=== PATIENT | female | born 1985 | race African-American/Black ===

== ENCOUNTER → 2022-06-16 14:14 | Outpatient (CLI) | payer OTHER, SELFPAY ==
--- NOTE | ~2022-06-16 | XR_ITS ---
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 RESULT: Lines, tubes, and devices: None. Lungs and pleura: Clear. Cardiomediastinal silhouette: Stable. Other: No acute osseous or upper abdominal finding. IMPRESSION: No acute cardiopulmonary process. Reviewed, dictated and finalized at location K. DEODORIZER SERVICER
== END ==
PROVIDERS: PCP Family Medicine Adolescent Medicine; Visit Provider Physician Assistant
DX: R06.02 Shortness of breath (principal)
CPT/HCPCS: 71046

== ENCOUNTER 2023-10-05 15:20 | Outpatient (CLI) | payer OTHER, SELFPAY ==
[2023-10-05 18:48] LABS: Basophils Percent Auto 0.4 % (0.2-1.2); Eosinophils Absolute Auto 0.2 K/mm3 (0-0.3); Eosinophils Percent Auto 2.2 % (0-4.4); Hematocrit 37.7 % (37.0-47.0); Hemoglobin 12.1 g/dL (12.0-15.0); Immature Granulocyte Absolute 0.04 K/mm3 (0.00-0.031); Immature Granulocyte Percent A 0.6 % (0-0.5); Lymphocytes Absolute Auto 1.31 K/mm3 (0.9-3.2); Lymphocytes Percent Auto 19.1 % (18.3-44.2); Mean Corpuscular HGB Conc 32.1 g/dl (32-36); Mean Corpuscular Hemoglobin 27.4 pg (26-34); Mean Corpuscular Volume 85.5 fl (80-100); Mean Platelet Volume 9.4 fl (7.4-10.4); Monocytes Absolute Auto 0.5 K/mm3 (0.1-0.6); Monocytes Percent Auto 7.7 % (2.6-8.5); Neutrophils Absolute Auto 4.8 K/mm3 (1.3-6.7); Platelet Count Result 324 k/mm3 (150-375); Red Blood Count 4.41 M/mm3 (4.2-5.4); Red Cell Distribution Width 15.3 % (11.5-14.5); White Blood Count 6.9 K/mm3 (4.5-10.0)
[2023-10-05 18:57] LABS: Alanine Aminotransferase 17 U/L (6-35); Albumin Level 4.3 g/dL (3.5-5.1); Alkaline Phosphatase 69 U/L (38-126); Anion Gap 10 mmol/L (4-12); Aspartate Amino Transferase 31 U/L (14-36); Bilirubin,Total 0.6 mg/dL (0.2-1.3); Blood Urea Nitrogen 10 mg/dL (7-17); Calcium 9.3 mg/dL (8.4-10.2); Carbon Dioxide 23 mmol/L (22-30); Chloride 107 mmol/L (98-107); Cholesterol 152 mg/dL (0-200); Estimated Glomerular Filt Rate > 60; Glucose 144 mg/dL (65-110); HDL Direct 26 mg/dL; Sodium 140 mmol/L (137-145); Triglycerides 140 mg/dL (<150)
[2023-10-05 19:07] LABS: LDL Cholesterol Direct 89 mg/dL
[2023-10-05 20:25] LABS: Hemoglobin A1C 5.5 % (<5.7)
== END 2023-10-05 15:21 | disposition home or self-care (01) ==
LOC: ANHGOSHLAB 15:21
PROVIDERS: PCP Family Medicine Adolescent Medicine; Visit Provider Nurse Practitioner Family
DX: E28.2 Polycystic ovarian syndrome (principal); E66.01 Morbid (severe) obesity due to excess calories; D84.1 Defects in the complement system; R53.83 Other fatigue; Z13.220 Encounter for screening for lipoid disorders
CPT/HCPCS: 36415; 80053; 80061; 82607; 83036; 84443; 85025

== ENCOUNTER 2023-11-04 15:14 | Outpatient (CLI) | payer OTHER, SELFPAY ==
--- NOTE | ~2023-11-04 | MR_ITS ---
EXAMINATION: MR brain/brain stem wo/w con DATE: 11/04/2023 15:49 INDICATION: Dizziness and giddiness. TECHNIQUE: Magnetic resonance imaging (MRI) of the brain and brainstem was performed without and with 20 mL MultiHance intravenous contrast. COMPARISON: None. FINDINGS: There is an empty sella. There is no intracranial hemorrhage, acute infarction, or abnormal intracranial mass lesion. The ventricles are normal in size. The mastoid air cells are normal. The o rbits are normal. The paranasal sinuses are clear. IMPRESSION: 1. No etiology for the patient's symptoms. Reviewed, dictated and finalized at location A.
== END 2023-11-04 15:15 ==
LOC: MICIMG 15:15
PROVIDERS: PCP Family Medicine Adolescent Medicine; Visit Provider Nurse Practitioner Family
DX: R42 Dizziness and giddiness (principal)
CPT/HCPCS: 70553; A9577

== ENCOUNTER 2023-12-11 14:48 | Outpatient (CLI) | payer OTHER, SELFPAY ==
--- NOTE | ~2023-12-11 | US_ITS ---
EXAMINATION: US pelvic complete w TV DATE: 12/11/2023 15:12 INDICATION: Pelvic and perineal pain. TECHNIQUE: Multiple transabdominal and transvaginal sonographic images of the pelvis were obtained. COMPARISON: None. FINDINGS: TRANSABDOMINAL ULTRASOUND: The uterus measures 8.1 x 4.7 x 5.7 cm. There is no free fluid in the pelvis. TRANSVAGINAL ULTRASOUND: The endometrial complex measures 6 mm in thickness. There is a 2.5 cm subserosal fibroid. The right o vary measures 2.8 x 2.7 x 2.3 cm. The left ovary measures 2.3 x 3.0 x 2.6 cm. There is normal vascula r flow in the ovaries. IMPRESSION: 1. Uterine fibroid. Reviewed, dictated and finalized at location A. IMPRESSION: 1. Uterine fibroid.
== END 2023-12-11 14:49 ==
LOC: MICIMG 14:49
PROVIDERS: PCP Obstetrics & Gynecology; Visit Provider Nurse Practitioner Family
DX: R10.2 Pelvic and perineal pain (principal); D25.9 Leiomyoma of uterus, unspecified
CPT/HCPCS: 76830; 76856

== ENCOUNTER 2024-02-12 08:29 | Outpatient (CLI) | payer OTHER, SELFPAY ==
--- NOTE | ~2024-02-12 | US_ITS ---
Limited Abdominal Sonogram: Real-time sonographic imaging of the right upper quadrant was performed. Clinical History: Nausea Findings: The liver appears mildly echogenic, with no evidence of mass lesion or bile duct dilatatio n. Main portal vein demonstrates normal direction of flow. The gallbladder is contracted, but appears normal with no evidence of gallstone or wall thickening. The common bile duct measures 3 mm. The vi sualized pancreas, aorta, and IVC are unremarkable. Impression: Probable diffuse fatty infiltration of the liver. Reviewed, dictated and finalized at location M. Impression: Probable diffuse fatty infiltration of the liver.
== END 2024-02-12 08:30 | disposition home or self-care (01) ==
PROVIDERS: PCP Nurse Practitioner Family; Visit Provider Nurse Practitioner Family
DX: R11.0 Nausea (principal); R10.11 Right upper quadrant pain
CPT/HCPCS: 76705

== ENCOUNTER 2024-02-26 07:50 | Outpatient (CLI) | payer OTHER, SELFPAY ==
--- NOTE | ~2024-02-26 | NM_ITS ---
EXAMINATION: NM hepatobiliary w pharm DATE: 02/26/2024 11:10 INDICATION: Right upper quadrant abdominal pain COMPARISON: None. TECHNIQUE: 4.8 mCi Tc-99m mebrofenin (Choletec) was administered intravenously. Scintigraphic images of the abdomen were obtained for one hour. 2.7 mcg sincalide (Kinevac) was administered by slow intr avenous infusion, and imaging was continued for 30 minutes. Gallbladder ejection fraction was calcula desean by the technologist. FINDINGS: There is normal clearance of radiotracer from the blood pool. There is homogeneous tracer uptake by t he liver. Activity progresses to the gallbladder and bowel. The gallbladder ejection fraction (GBEF) is 71% (normal 10-90%, but most patient with gallbladder dysfunction have GBEF < 35% which does over lap with the normal range). IMPRESSION: 1. Normal hepatobiliary scan. Reviewed, dictated and finalized at location B.
== END 2024-02-26 07:51 | disposition home or self-care (01) ==
PROVIDERS: PCP Nurse Practitioner Family; Visit Provider Nurse Practitioner Family
DX: R10.11 Right upper quadrant pain (principal)
CPT/HCPCS: 78227; A9537; J2805

== ENCOUNTER 2024-05-20 10:56 | Outpatient (CLI) | payer OTHER, SELFPAY ==
--- NOTE | ~2024-05-20 | XR_ITS ---
Lumbosacral Spine: AP and lateral views Clinical History: Pain Findings: The normal lordotic curve is maintained. The vertebral bodies and posterior elements are i ntact. The intervertebral disc spaces are preserved. The sacroiliac joints are normally outlined. Impression: No significant abnormality. Reviewed, dictated and finalized at [facility]. [facility] Impression: No significant abnormality.
== END 2024-05-20 10:57 | disposition home or self-care (01) ==
PROVIDERS: PCP Nurse Practitioner Family; Visit Provider Nurse Practitioner Family
DX: M54.50 Low back pain, unspecified (principal)
CPT/HCPCS: 72100

== ENCOUNTER 2024-10-06 01:21 | Day surgery (SDC) | payer OTHER, SELFPAY ==
[2024-09-26 13:34] VITALS: BMI 49.1
--- NOTE | 2024-10-05 14:27 | WPDANESEPPF ---
Anes - Initial Pre Proc Eval Procedure: Operation Date: 10/06/24 10:00 Proposed Procedures p Screening Colonoscopy - Reinaldo Castellanos MD Date/Time: 10/05/24 14:27 Surgeon: Reinaldo Castellanos MD Pre Op Diagnosis: change in bowel habits Patient Data Age: 39 Gender: F Height: 1.65 m Weight: 134 kg Allergies Allergy/AdvReac Type Severity Reaction Status Date / Time montelukast Allergy Mild DEPRESSION Verified 10/06/24 08:38 morphine Allergy Unknown ITCHING Verified 10/06/24 08:38 sertraline AdvReac Severe Other Verified 10/06/24 08:38 NSAIDS (Non-Steroidal AdvReac Unknown Difficulty Verified 10/06/24 08:38 Anti-Inflamma Swallowing lisinopril Allergy Severe throat Uncoded 10/06/24 08:38 swelling Home Medications ?Medication ?Instructions ?Recorded ?Confirmed ?Type cetirizine 10 mg tablet 10 mg PO DAILY 06/16/22 10/06/24 History folic acid 400 mcg tablet 0.4 mg PO DAILY 06/16/22 10/06/24 History magnesium oxide 500 mg capsule 500 mg PO DAILY 06/16/22 10/06/24 History jlwkwegvfuna-Cs-ftjn-minerals 18 tablet PO DAILY 06/16/22 07/14/24 History mg-0.4 mg tablet albuterol sulfate 90 mcg/actuation 1 puff inhalation Q4H PRN 09/30/23 09/26/24 Rx aerosol inhaler shortness of breath or wheezing #6.7 grams amitriptyline 25 mg tablet 50 mg (2 x 25 mg) PO QHS #180 tabs 11/03/23 10/06/24 Rx sulfasalazine 500 mg 1.5 g (3 x 500 mg) PO BID #540 tabs 01/19/24 10/06/24 Rx tablet,delayed release dicyclomine 10 mg capsule 10 mg PO ONCE PRN unknown 02/03/24 09/26/24 History metoprolol succinate 100 mg 100 mg PO DAILY #90 tabs 02/12/24 10/06/24 Rx tablet,extended release 24 hr amlodipine 5 mg tablet 5 mg PO DAILY #90 tabs 04/27/24 10/06/24 Rx cyanocobalamin (vitamin B-12) 1,000 mcg PO DAILY 07/14/24 10/06/24 History 1,000 mcg capsule norethindrone acetate 5 mg tablet See Rx Instructions .Route 08/01/24 10/06/24 Rx .COMPLEX #90 tabs metformin 500 mg tablet 500 mg PO DAILY 08/08/24 09/26/24 History citalopram 40 mg tablet 40 mg PO DAILY #90 tabs 09/29/24 10/06/24 Rx Patient hx anesthesia problems: none Family hx anesthesia problems: none Results Review: All pre-operative results and documents have been reviewed as part of the pre-operative evaluation. [facility] Past Medical History Medical History Chest pain Asthma Endometriosis Obstructive sleep apnea (adult) (pediatric) (10/2022) secondary to nasal obstruction, resolved with treatment with ENT PCOS (polycystic ovarian syndrome) Family History Family History Grandparent Diabetes mellitus Acute myocardial infarction Hypertension Father Cerebrovascular accident Hypertension Mother Hypertension Other Heart disease Malignant neoplasm of prostate Social History Social History Smoking status: Never smoker Alcohol intake: never Substance use: never Substance use type: does not use Lack of Transportation: No Lack of Food: Never True Current Housing: I Have Housing Concerned About Future Housing: No Difficulty Paying Gas/Electric Bills: No Difficulty Paying for Meds: No Currently Unemployed: No Education: Master's Degree or Higher Difficulty w/ Childcare or Family Care: No Living arrangements: alone Occupation/Education: occupation 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 Gender identity (if verbalized by the patient): Female Sexual Orientation (if Verbalized by the Patient): Straight or Heterosexual Spiritual care concerns: No Anes - Eval Final PreProcedure Day of Procedure 10/05/24 14:27 Patient weight: morbidly obese Heart: regular rate and rhythm Lungs: clear to auscultation Airway: Mallampati scale class II Neurological: alert and oriented Last oral intake: >/= 8 hours ASA classification: III Emergent: no Anesthetic plan: proceed Anesthesia type and monitoring: general GIVS and standard monitoring Results Review: All pre-operative results and documents have been reviewed as part of the pre-operative evaluation. Informed Consent: The patient's anesthetic plan and its attendant risks and benefits were discussed with the patient/family/POA. Questions were solicited and answers provided to the satisfaction of the patient/family/POA.
--- OUTSIDE RECORDS SUMMARY | 2024-10-06 01:23 | XMS_ITS | Clinical Summary ---
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 Gender Identity Not on file Sexual Orientation Not on file Plan of Treatment Health Maintenance Due Date Last Done Comments Hepatitis C Virus (HCV) Screening 1986 TdaP Immunization 1986 Hepatitis B Immunization (3 of 3 - 3-dose series) 12/21/1996 10/05/1996, 08/31/1996 Pap Smear 08/12/2007 Cervical Cancer Screening (CCS) 2016 HPV/Cotest 2016 Influenza Immunization (#1) 2024 03/19/2019, 0 06/24/2017 SARS-COV-2 Immunization ( season) 2024 Respiratory Syncytial Virus (RSV) Immunization (Adult) (1 - 1-dose 75+ series) 2061 DTaP/Tdap/Td Immunization Discontinued 1992, 01/27/1992, 12/25/1989, Additional history exists Meningococcal Immunization (ACWY) Aged Out 01/20/2005 No longer eligible based on patient's age to complete this topic Pneumococcal Immunization Combined Aged Out No longer eligible based on patient's age to complete this topic Rotavirus Immunization Aged Out No lo nger eligible based on patient's age to complete this topic
--- OUTSIDE RECORDS SUMMARY | 2024-10-06 01:23 | XMS_ITS | Clinical Summary ---
Author Organization [facility] Address [facility] [place] [address] Care Team Providers Care Cash Applications Manager Name Role Phone Unavailable Primary Care Provider Unavailabl e Social History Tobacco Use Types Packs/Day Years Used Date Smoking Tobacco: Never Assessed Comments Unknown Sex and Gender Information Value Date Recorded Sex Assigned at Not on file Legal Sex Female 6:07 PM CDT Gender Identity Not on file Sexual Orientation Not on file Plan of Treatment Health Maintenance Due Date Last Done Comments Cervical Cancer Screening Pa p Smear (Age 30 to 64) Every 3 Years 1986 Annual Physical 1989 Hepatitis C 2004 DTaP, Tdap and Td Vaccines ( 1 - Tdap) 2005 Hepatitis B Vaccines (1 of 3 - 19+ 3-dose series) 2005 Cervical Cancer Screening Pa p with HPV Testing (Age 30 to 64) Every 5 Years 2016 Cervical Cancer Screening with HPV 2016 COVID-19 Vaccine (2023-2 5 season) 2024 HPV Vaccines Aged Out No longer eligi ble based on patient's age to complete this topic Meningococcal B Vaccine Aged Out No l onger eligible based on patient's age to complete this topic Meningococcal Vaccine Aged Out No evangelista eugenio eligible based on patient's age to complete this topic Pneumococcal Vaccine: Pediat rics (0 to 5 Years) and At-Risk Patients (6 to 49 Years) Aged Out No longer eligible b ased on patient's age to complete this topic RSV Immunizations Under 20 Months Aged Out No longer eligible based on patient's age to complete this topic
--- OUTSIDE RECORDS SUMMARY | 2024-10-06 01:23 | XMS_ITS | Clinical Summary ---
Author Organization [facility] Address [address] [place] [address] Care Team Providers Care Microchip Specialist Name Role Phone Arsenio Zhu MD Primary Care Prov ider Jazlyn North NP Unavailable [phone] Allergies Active Allergy Reactions Criticality Noted Date Comments Esterified Estrogens Swelling Medium 09/15/2022 Montelukast Unknown 04/26/2021 Morphine Itching High 04/26/2021 Nuts Unknown 04/26/2021 Sertraline Mental status changes Low 09/15/2022 Suicidal thoughts Sesame Oil Unknown High 04/26/2021 Medications amitriptyline (ELAVIL) 25 mg tablet 3 Active norethindrone (AYGESTIN) 5 mg tablet 3 Active metFORMIN (GLUCOPHAGE) 500 mg tablet TAKE 1 TABLET BY MOUTH DAILY WITH MEALS 2 Active citalopram (CeleXA) 40 mg tablet Take 1 tablet (40 mg total) by mouth daily 3 Active cetirizine (ZyrTEC) 10 mg tablet Take 1 tablet (10 mg total) by mouth 6 Active dicyclomine (BENTYL) 10 mg capsule Use in the mouth or throat. 7 Active EPINEPHrine 0.3 mg/0.3 mL auto-injection syringe Inject 0.3 mL (0.3 mg total) into the muscle as instructed as needed 1 Active famotidine (PEPCID) 40 mg tablet Take 1 tablet (40 mg total) by mouth 2 (two) times a day 0 Active folic acid (FOLVITE) 1 mg tablet Take 1 tablet (1 mg total) by mouth 9 Active predniSONE (DELTASONE) 20 mg tablet 3 Active albuterol HFA (PROVENTIL HFA,VENTOLIN HFA,PROAIR HFA) 90 mcg/actuation inhaler 4 Active sulfaSALAzine EN (AZULFIDINE EN) 500 mg EC tablet 4 Active metoprolol XL (TOPROL-XL) 100 mg 24 hr tablet 4 Active Active Problems Problem Noted Date Diagnosed Date Gastroesophageal reflux disease 03/01/2024 Low back pain 03/01/2024 Obstructive sleep apnea 03/01/2024 Primary hypertension 03/01/2024 Morbid (severe) obesity due to excess calories 0 03/01/2024 BMI 45.0-49.9, adult 01/07/2024 Endometriosis determined by laparoscopy 09/23/19 23 10/26/2022 Allergic rhinitis 04/26/2021 10/26/2022 Anemia 04/26/2021 10/26/2022 Chest wall pain 04/26/2021 10/26/2022 Depressive disorder, 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 Structural causes includes history of endometrial polyp s/p hysteroscopic resection as well as fibroids. Treatments in the past included E +P combined hormones, Progestins. She is now responding well to Norethidrone acetate 5 mg daily (initially started dosing at 2.5 mg). Christina discussed today sometimes breakthrough bleeding can happen, given overall improvement the past 5 months with only change in May, we discussed continuing the same management and evaluate symptoms in 3-4 months. PCOS (polycystic ovarian syndrome) 06/16/2020 10/26/2022 Overview (10/26/2022): Last Assessment & Plan: Christina is taking metformin 500 mg daily. Her most recent HA1C at 4.9. Discussed impact of PCOS in abnormal bleeding. Will obtain repeat ultrasound in one year to assess adnexa. Will continue with the same management for now Primary dysmenorrhea 11/15/2010 10/26/2022 Surgical History Surgery Date Site/Laterality Comments COLONOSCOPY COLPOSCOPY SINUS SURGERY HYSTEROSCOPY W/ POLYPECTOMY Medical History Medical History Date Comments Anemia Asthma Depression 2010 Hypertension 2023 Low back pain 2015 Morbid obesity (HCC) Sleep apnea 2022 Eosinophilic colitis PCOS (polycystic ovarian syndrome) GERD (gastroesophageal reflux disease) Family History Medical History Relation Name Comments Depression Father Chris Rushing Hypertension Father Chris Rushing Mental illness Father Chris Rushing Stroke Father Chris Rushing Asthma Maternal Grandmother Kayleigh Quinn Diabetes Maternal Grandmother Kayleigh Quinn Heart attack Maternal Grandmother Kayleigh Quinn Heart disease Maternal Grandmother Kayleigh Quinn Kidney disease Maternal Grandmother Kayleigh Quinn Obesity Maternal Grandmother Kayleigh Quinn Hypertension Mother Reyna Rushing Diabetes Paternal Grandfather Haile Rushing Relation Name Status Comments Father Chris Rushing Maternal Grandmother Kayleigh Quinn Mother Reyna Rushing Paternal Grandfather Haile Rushing Social History Tobacco Use Types Packs/Day Years Used Date Smoking Tobacco: Never Smokeless Tobacco: Never AUDIT-C Answer Date Recorded Frequency of Alcohol Consumption Not on file 01/07/2024 Q2: How many drinks containi ng alcohol do you have on a typical day when you are drinking? 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 Gender Identity Not on file Sexual Orientation Not on file Obstetrics History Last Filed Vital Signs Vital Sign Reading Time Taken Comments Blood Pressure 135/101 01/26/2024 2:01 PM CDT Pulse 96 01/26/2024 2:01 PM CDT Temperature 36.4 C (97.6 F) 09/15/2022 6:48 PM CDT Respiratory Rate 20 10/26/2022 8:59 AM CDT Oxygen Saturation 97% 01/26/2024 2:01 PM CDT Inhaled Oxygen Concentration - - Weight 134 kg (295 lb 6.4 oz) 01/07/2024 10:36 A M CDT Height 165.1 cm (5' 5 ) 01/07/2024 10:36 AM CDT Body Mass Index 49.16 01/07/2024 10:36 AM CDT Plan of Treatment Health Maintenance Due Date Last Done Comments Depression Screening 1986 Hepatitis C Screening 1986 DTaP/Tdap/Td Vaccine (6 - Tdap) 1997 02/01/1993, 01/27/1992, 12/25/1989, Additional history exists Varicella Vaccines (1 of 2 - 13+ 2-dose series) 08/12/1999 Regular Well Visit/Exam 18-64 2004 Cervical Cancer Screening 12/29/2020 12/30/2019 Covid-19 Vaccine ( season) 2024 03/19/2022, 08/20/2021, 11/09/2020, Additional history exists Influenza Vaccine (Season Ended) 2025 03/19/2022, 03/19/2022, 03/14/2021, Additional history exists Hepatitis B Screening Completed 10/05/1996, 997 HPV Vaccines Aged Out No longer eligi ble based on patient's age to complete this topic Pneumococcal vaccine <65 Aged Out No longer eligible based on patient's age to complete this topic Insurance [employer] Care Teams Microchip Specialist Relationship Specialty Start Date End Date Arsenio Zhu MD [address] [place] [address] PCP - General Family Medicine 07/24/22 Jazlyn North NP [address] [place] [address] [address] [address] Nurse Practitioner Family Practice 10/02/23
--- OUTSIDE RECORDS SUMMARY | 2024-10-06 01:23 | XMS_ITS | Referral Summary ---
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 Gender Identity Not on file Sexual Orientation Not on file Last Filed Vital Signs Vital Sign Reading [...] 01/07/2024 10:36 AM CDT Plan of Treatment Not on file Insurance [facility] [employer] [employer] [facility] [employer]O Address: [place] [address] [employer] [employer]O Address: [address] [place] [address] [employer] [facility] [employer]O Address: [place] [address] Care Teams Dairy Manager Relationship Specialty Start Date End Date Arsenio Zhu MD [address] [place] [address] PCP - General Family Medicine 07/24/22 Jazlyn North NP [address] [place] [address] Nurse Practitioner Family Practice 10/02/23
[2024-10-06 08:40] VITALS: BP 156/101; PULSE 111; RESP 18; TEMP 36.6; O2SAT 98; BMI 47.7
[2024-10-06 08:44] LABS: BEDSIDEPREGUCG Negative (Negative)
[2024-10-06] MEDS: LACTATED RINGERS 1,000 ML 150 ML IV CONT (08:48)
--- NOTE | 2024-10-06 09:18 | PM.HPGS ---
History of Present Illness History of Present Illness Consent: Risks, benefits, and alternatives have been discussed and questions answered. Patient agrees to proceed with procedure. Chief complaint: change in bowel habits Narrative: Christina Rushing is a 39 year old female diagnosed with eosinophilic colitis in 2014 maintained on sulfasalazine, lately with some diarrhea. Review of Systems Review of Systems: All systems reviewed & are unremarkable except as noted in HPI and below PMFSH Past Medical History Medical History Chest pain Asthma Endometriosis Obstructive sleep apnea (adult) (pediatric) (10/2022) secondary to nasal obstruction, resolved with treatment with ENT PCOS (polycystic ovarian syndrome) Family History Family History Grandparent Diabetes mellitus Acute myocardial infarction Hypertension Father Cerebrovascular accident Hypertension Mother Hypertension Other Heart disease Malignant neoplasm of prostate Social History Social History Smoking status: Never smoker Alcohol intake: never Substance use: never Substance use type: does not use Lack of Transportation: No Lack of Food: Never True Current Housing: I Have Housing Concerned About Future Housing: No Difficulty Paying Gas/Electric Bills: No Difficulty Paying for Meds: No Currently Unemployed: No Education: Master's Degree or Higher Difficulty w/ Childcare or Family Care: No Living arrangements: alone Occupation/Education: occupation 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 Gender identity (if verbalized by the patient): Female Sexual Orientation (if Verbalized by the Patient): Straight or Heterosexual Spiritual care concerns: No Meds Home Medications and Allergies Home Medications ?Medication ?Instructions ?Recorded ?Confirmed ?Type cetirizine 10 mg tablet 10 mg PO DAILY 06/16/22 10/06/24 History folic acid 400 mcg tablet 0.4 mg PO DAILY 06/16/22 10/06/24 History magnesium oxide 500 mg capsule 500 mg PO DAILY 06/16/22 10/06/24 History fdzzncdwibxj-Cv-krgu-minerals 18 tablet PO DAILY 06/16/22 07/14/24 History mg-0.4 mg tablet albuterol sulfate 90 mcg/actuation 1 puff inhalation Q4H PRN 09/30/23 09/26/24 Rx aerosol inhaler shortness of breath or wheezing #6.7 grams amitriptyline 25 mg tablet 50 mg (2 x 25 mg) PO QHS #180 tabs 11/03/23 10/06/24 Rx sulfasalazine 500 mg 1.5 g (3 x 500 mg) PO BID #540 tabs 01/19/24 10/06/24 Rx tablet,delayed release dicyclomine 10 mg capsule 10 mg PO ONCE PRN unknown 02/03/24 09/26/24 History metoprolol succinate 100 mg 100 mg PO DAILY #90 tabs 02/12/24 10/06/24 Rx tablet,extended release 24 hr amlodipine 5 mg tablet 5 mg PO DAILY #90 tabs 04/27/24 10/06/24 Rx cyanocobalamin (vitamin B-12) 1,000 mcg PO DAILY 07/14/24 10/06/24 History 1,000 mcg capsule norethindrone acetate 5 mg tablet See Rx Instructions .Route 08/01/24 10/06/24 Rx .COMPLEX #90 tabs metformin 500 mg tablet 500 mg PO DAILY 08/08/24 09/26/24 History citalopram 40 mg tablet 40 mg PO DAILY #90 tabs 09/29/24 10/06/24 Rx Allergies Allergy/AdvReac Type Severity Reaction Status Date / Time montelukast Allergy Mild DEPRESSION Verified 10/06/24 08:38 morphine Allergy Unknown ITCHING Verified 10/06/24 08:38 sertraline AdvReac Severe Other Verified 10/06/24 08:38 NSAIDS (Non-Steroidal AdvReac Unknown Difficulty Verified 10/06/24 08:38 Anti-Inflamma Swallowing lisinopril Allergy Severe throat Uncoded 10/06/24 08:38 swelling Vital Signs Vital Signs - 24 hr 10/06/24 08:40 Temperature 97.9 F Pulse Rate 111 H Respiratory Rate 18 Blood Pressure 156/101 H Pulse Oximetry 98 Oxygen Delivery Room Air Exam Const: General: comfortable and no acute distress HENMT: Face/Nose/Sinus: Normal nares present Eyes: General: appearance normal, both eyes and all related structures Neck: Neck: no JVD Resp: Auscultation: clear to auscultation bilaterally Cardio: Rate: regular rate Rhythm: regular rhythm GI: Inspection: non-distended GI Palp: Yes Soft to palpation Skin: General skin exam: normal color Neuro: General: gait normal Speech: normal speech Extrem: General: normal to inspection Psych: Mental Status: mental status grossly normal Assessment and Plan Assessment and plan (1) Eosinophilic colitis: Code(s): K52.82 - Eosinophilic colitis Status: Acute Assessment and Plan: colitis, will repeat biopsies (2) Diarrhea: Qualifiers: Diarrhea type: unspecified type Qualified Code(s): R19.7 - Diarrhea, unspecified Code(s): R19.7 - Diarrhea, unspecified Status: Acute
[2024-10-06 09:34] VITALS: BP 141/99; PULSE 106; RESP 24; O2SAT 94
[2024-10-06 09:44] VITALS: BP 145/93; PULSE 86; RESP 15; O2SAT 99
[2024-10-06 09:54] VITALS: BP 145/93; PULSE 82; RESP 14; O2SAT 100
== END 2024-10-06 10:07 | disposition home or self-care (01) ==
PROVIDERS: Anesthesiology; PCP Nurse Practitioner Family; Referring Provider Nurse Practitioner Family; Visit Provider Internal Medicine Gastroenterology
PROC: 0DJD8ZZ Inspection of Lower Intestinal Tract, Via Natural or Artificial Opening Endoscopic (ICD-10-PCS; CPT 45378; principal; 2024-10-06 10:00)
DX: D12.2 Benign neoplasm of ascending colon (principal); K63.89 Other specified diseases of intestine; J45.909 Unspecified asthma, uncomplicated; N80.9 Endometriosis, unspecified; G47.33 Obstructive sleep apnea (adult) (pediatric); E28.2 Polycystic ovarian syndrome; E66.01 Morbid (severe) obesity due to excess calories; Z68.42 Body mass index [BMI] 45.0-49.9, adult; Z79.51 Long term (current) use of inhaled steroids; Z79.84 Long term (current) use of oral hypoglycemic drugs; Z87.19 Personal history of other diseases of the digestive system; Z80.42 Family history of malignant neoplasm of prostate; Z82.49 Family history of ischemic heart disease and other diseases of the circulatory system
CPT/HCPCS: 45380; 45385; 88305; J2003; J2704; J7120

== ENCOUNTER 2025-05-10 17:50 | Emergency (ER) | payer OTHER, SELFPAY ==
--- OUTSIDE RECORDS SUMMARY | 2009-07-24 18:00 | XMS_ITS | Continuity of Care Document ---
Author Organization [facility] Address [address] [place] [address] Phone Care Team Providers Care Drug Safety Associate Name Role Phone Tab Seals MD Unavailable Unavailable Advance Directives Directive Yes / No Effective Date File Name No Information Encounters Encounter Description Practice Location Reason(s) For Visit Diagnoses Date Provider Providers Copied on Encounter [facility], [address], [place], [place], [id number], tel:[phone] [facility] No Information 0 Arnel Barth. [address] [place] [address], [id number] , . tel: [phone] [facility], [address], [place], [place], [id number], tel:[phone] [facility] ANGIONEUROTIC EDEMAURTICARIA NEC 0 Arnel Barth. [address] [place] [address], [id number] , . tel: [phone] Family History Family Member Type Diagnosis Age At Onset No Information Payers Payer name Insurance type Covered republican ID Authoriza tion(s) No Information Social History Type Description Quantity Date Captured Comments Sex Female Smoking Status No Information Chief Complaint And Reason For Visit No Information Reason For Referral Reason For Referral No Information History Of Present Illness Encounter Date Complaint History Of Prese nt Illness No Information Functional Status Date Functional Assessmen t No Information Instructions Date Instruction Additional Infor mation No Information Assessments Type Assessment Date No Information Patient Care Teams Name Effective Dates (start - stop) Status Members No Information
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
[2025-05-10 17:50] VITALS: BP 139/90; PULSE 65; RESP 18; TEMP 36.5; O2SAT 99
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
[2025-05-10] MEDS: ACETAMINOPHEN 500 MG TABLET 1000 MG PO (18:54)
--- OUTSIDE RECORDS SUMMARY | 2025-05-10 19:15 | XMS_ITS | Clinical Summary ---
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 Gender Identity Not on file Sexual Orientation [...] A M CDT Height 165.1 cm (5' 5) 01/07/2024 10:36 AM CDT Body Mass Index 49.16 01/07/2024 10:36 AM CDT Plan of Treatment Health Maintenance Due Date Last Done Comments Depression Screening 1986 Hepatitis C Screening 1986 DTaP/Tdap/Td Vaccine (6 - Tdap) 1997 02/01/1993, 01/27/1992, 12/25/1989, Additional history exists Varicella Vaccines (1 of 2 - 13+ 2-dose series) 08/12/1999 Regular Well Visit/Exam 18-64 2004 HPV Vaccines (1 - 3-dose SCDM series) 2013 Cervical Cancer Screening 12/29/2020 12/30/2019 Covid-19 Vaccine ( season) 2025 03/19/2022, 08/20/2021, 11/09/2020, Additional history exists Influenza Vaccine (#1) 2025 , 03/19/2022, 03/14/2021, Additional history exists Hepatitis B Screening Completed 10/05/1996, 997 Pneumococcal vaccine <65 Aged Out No longer eligible based on patient's age to complete this topic Insurance [employer] [employer] [employer] [facility] [employer]O Address: [address] [address] [place] [address] [employer] [facility] [employer] [facility] [employer]/PPO Address: [address] [place] [address] [employer] [employer] [facility] [employer]/PPO Address: [place] [address] Care Teams Vac Press Operator Relationship Specialty Start Date End Date Arsenio Zhu MD PCP - General Family Medicine 07/24/22 Jazlyn North NP [address] [place] [address] [place] [address] Nurse Practitioner Family Practice 10/02/23
--- OUTSIDE RECORDS SUMMARY | 2025-05-10 19:15 | XMS_ITS | Clinical Summary ---
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
--- OUTSIDE RECORDS SUMMARY | 2025-05-10 19:15 | XMS_ITS | Clinical Summary ---
Author Organization [facility] Address Replaced by [facility] [place] [address] Care Team Providers Care Machine Iii Coremaker Name Role Phone Unavailable Primary Care Provider [...] of 3 - 19+ 3-dose series) 2005 HPV Vaccines (1 - 3-dose SCD M series) 2013 Cervical Cancer Screening Pa p with HPV Testing (Age 30 to 64) Every 5 Years 2016 Cervical Cancer Screening with HPV 2016 COVID-19 Vaccine (2024-2 6 season) 2025 Influenza Adult (#1) 2025 Hepatitis A Vaccines Aged Out No long er eligible based on patient's age to complete [...]
[2025-05-10 19:27] VITALS: BP 136/70; PULSE 80; RESP 16; O2SAT 100
== END 2025-05-10 19:29 | disposition home or self-care (01) ==
LOC: ANHED 19:13
PROVIDERS: Emergency Provider Student in an Organized Health Care Education/Training Program; PCP Family Medicine
DX: S16.1XXA Strain of muscle, fascia and tendon at neck level, initial encounter (principal); S89.92XA Unspecified injury of left lower leg, initial encounter; J45.909 Unspecified asthma, uncomplicated; E28.2 Polycystic ovarian syndrome; G47.33 Obstructive sleep apnea (adult) (pediatric); N80.9 Endometriosis, unspecified; Z79.3 Long term (current) use of hormonal contraceptives; Z79.899 Other long term (current) drug therapy; V49.40XA Driver injured in collision with unspecified motor vehicles in traffic accident, initial encounter
CPT/HCPCS: 73502; 73562; 99284; A9270